=== PATIENT | male | born 1970 | race American Indian/Alaskan Native ===

== ENCOUNTER 2016-12-19 20:30 | Emergency (ER) | payer BC ==
[2016-12-19 20:47] VITALS: BMI 30.8
[2016-12-19 20:52] VITALS: BP 129/88; PULSE 89; RESP 17; TEMP 98.1; O2SAT 95
[2016-12-19] MEDS ORDERED: Sodium Chloride 0.9% 1,000 ML IV STA (21:32)
--- NOTE | 2016-12-19 21:36 | ED PDOC ---
Arrival/HPI - General Chief Complaint: High Blood Sugar Time Seen by Provider: 12/19/16 21:06 Historian: Patient - History of Present Illness Narrative History of Present Illness (Text): 12/19/16 21:33 Demetrio Montgomery is a 46 year old male, with a history of diabetes, presents to the emergency department for evaluation of 1 week duration of elevated blood glucose level. Patient states he was on Metformin in the past which he has not taken for over a year.He states he did not like the medication so he discontinued taking it. Patient has not had any recent follow up with PMD and only noticed elevation in blood glucose level a week ago which was in the 570s. Denies any fever, chills, headache, dizziness, blurred vision, nausea, vomiting , diarrhea, or any other complaints at this time. Time/Duration: 1 week Symptom Onset: Gradual Severity Level: Mild Activities at Onset: Light Past Medical History - Provider Review Nursing Documentation Reviewed: Yes - Infectious Disease Hx of Infectious Diseases: None - Cardiac Hx Cardiac Disorders: No - Pulmonary Hx Respiratory Disorders: Yes Hx Asthma: Yes - Neurological Hx Neurological Disorder: No - HEENT Hx HEENT Disorder: No - Renal Hx Renal Disorder: No - Endocrine/Metabolic Hx Endocrine Disorders: Yes Hx Diabetes Mellitus Type 2: Yes - Hematological/Oncological Hx Blood Disorders: No - Integumentary Hx Dermatological Disorder: No - Musculoskeletal/Rheumatological Hx Musculoskeletal Disorders: No - Gastrointestinal Hx Gastrointestinal Disorders: No - Genitourinary/Gynecological Hx Genitourinary Disorders: No - Psychiatric Hx Psychophysiologic Disorder: No Hx Depression: No Hx Emotional Abuse: No Hx Physical Abuse: No Hx Substance Use: No - Anesthesia Hx Anesthesia: No - Suicidal Assessment Feels Threatened In Home Enviroment: No Family/Social History - Physician Review Nursing Documentation Reviewed: Yes Family/Social History: No Known Family HX Smoking Status: Never Smoked Hx Alcohol Use: Yes Frequency of alcohol use: Socially Hx Substance Use: No Hx Substance Use Treatment: No Allergies/Home Meds Allergies/Adverse Reactions: Allergies No Known Allergies Allergy (Verified 12/19/16 20:50) Review of Systems - Physician Review All systems were reviewed & negative as marked: Yes - Review of Systems Constitutional: Normal. absent: Fatigue, Fevers Respiratory: Normal. absent: SOB, Cough, Sputum Cardiovascular: Normal. absent: Chest Pain, Palpitations Gastrointestinal: Normal. absent: Abdominal Pain, Diarrhea, Nausea, Vomiting Neurological: absent: Headache, Dizziness Physical Exam Vital Signs Reviewed: Yes Vital Signs Temp Pulse Resp BP Pulse Ox 12/19/16 20:52 98.1 F 89 17 129/88 95 Temperature: Afebrile Blood Pressure: Normal Pulse: Regular Respiratory Rate: Normal Appearance: Positive for: Well-Appearing, Non-Toxic, Comfortable Pain Distress: None Mental Status: Positive for: Alert and Oriented X 3 Finger Stick Blood Glucose: 425 - Systems Exam Head: Present: Atraumatic, Normocephalic Pupils: Present: PERRL Conjunctiva: Present: Normal Mouth: Present: Moist Mucous Membranes Respiratory/Chest: Present: Clear to Auscultation, Good Air Exchange. No: Respiratory Distress, Accessory Muscle Use Cardiovascular: Present: Regular Rate and Rhythm, Normal S1, S2. No: Murmurs Abdomen: Present: Normal Bowel Sounds. No: Tenderness, Distention, Peritoneal Signs Upper Extremity: Present: Normal Inspection. No: Cyanosis, Edema Lower Extremity: Present: Normal Inspection. No: Edema Neurological: Present: GCS=15, CN II-XII Intact, Speech Normal, Motor Func Grossly Intact, Normal Sensory Function Skin: Present: Warm, Dry, Normal Color. No: Rashes Psychiatric: Present: Alert, Oriented x 3, Normal Insight, Normal Concentration Medical Decision Making ED Course and Treatment: 12/19/16 21:38 Impression: A 46 year old male who presents to the emergency department for evaluation of elevated blood glucose level for past week. patient noncompliant with medication for over a year. Plan: -- Labs -- IV fluids -- Reassess and disposition Progress Notes: 12/20/16 01:10 Patient's blood glucose level decreasing following treatment. Advised to followup with PMD within few days and present to emergency department for new/ worsening symptoms. - Lab Interpretations Lab Results: 12/19/16 22:03 12/19/16 22:03 Lab Results 12/19/16 23:10: POC Glucose (mg/dL) 266 H 12/19/16 22:03: WBC 6.1, RBC 4.83, Hgb 15.3, Hct 42.7, MCV 88.4, MCH 31.7, MCHC 35.8, RDW 12.2, Plt Count 191, MPV 10.5 12/19/16 22:03: Sodium 136, Potassium 4.1, Chloride 100, Carbon Dioxide 24, Anion Gap 16, BUN 14, Creatinine 0.9, Est GFR ( Amer) > 60, Est GFR (Non- Af Amer) > 60, Random Glucose 351 H*, Calcium 9.3, Total Bilirubin 0.7, AST 34, ALT 54, Alkaline Phosphatase 88, Total Protein 8.0, Albumin 4.4, Globulin 3.6, Albumin/Globulin Ratio 1.2 12/19/16 20:47: POC Glucose (mg/dL) 425 H* I have reviewed the lab results: Yes - Medication Orders Current Medication Orders: Discontinued Medications Sodium Chloride (Sodium Chloride 0.9%) 1,000 mls @ 999 mls/hr IV .Q1H1M STA Stop: 12/19/16 22:32 Last Admin: 12/19/16 22:07 Dose: 999 mls/hr - Scribe Statement The provider has reviewed the documentation as recorded by the Alice Bernard Provider Attestation: All medical record entries made by the Alice were at my direction and personally dictated by me. I have reviewed the chart and agree that the record accurately reflects my personal performance of the history, physical exam, medical decision making, and the department course for this patient. I have also personally directed, reviewed, and agree with the discharge instructions and disposition. Disposition/Present on Arrival - Present on Arrival Any Indicators Present on Arrival: No History of DVT/PE: No History of Uncontrolled Diabetes: No Urinary Catheter: No History of Decub. Ulcer: No History Surgical Site Infection Following: None - Disposition Have Diagnosis and Disposition been Completed?: Yes Diagnosis: Diabetes mellitus Disposition: HOME/ ROUTINE Disposition Time: 00:44 Patient Plan: Discharge Condition: GOOD Discharge Instructions (ExitCare): Diabetes Mellitus Type 2 in Adults (ED) Additional Instructions: Maintain diabetic diet/take meds as prescribed/*Must follow up with your doctor this week* Prescriptions: GlipiZIDE [Glucotrol] 5 mg PO DAILY #30 tab Referrals: PCP,NO [Primary Care Provider] - Follow up with primary Forms: [employer] (Yoruba)
[2016-12-19 22:12] LABS: HEMATOCRIT 42.7 % (42.0-52.0); MEAN CELL VOLUME 88.4 fl (80.0-105.0); MEAN CORPUSCULAR HEMOGLOBIN 31.7 pg (25.0-35.0); MEAN CORPUSCULAR HGB CONC 35.8 g/dl (31.0-37.0); MEAN PLATELET VOLUME 10.5 fl (7.0-11.0); RED CELL DISTRIBUTION WIDTH 12.2 % (11.5-14.5); WHITE BLOOD COUNT 6.1 10^3/ul (4.5-11.0)
[2016-12-19 22:23] LABS: ALB/GLOB RATIO 1.2 (1.1-1.8); ALKALINE PHOSPHATASE 88 U/L (38-126); ALT/SGPT 54 U/L (7-56); AST/SGOT 34 U/L (17-59); BILIRUBIN,TOTAL 0.7 mg/dL (0.2-1.3); BLOOD UREA NITROGEN 14 mg/dL (7-21); CALCIUM 9.3 mg/dL (8.4-10.5); CARBON DIOXIDE 24 mmol/L (21-33); CHLORIDE 100 mmol/L (98-107); GFR AFRICAN-AMERICAN > 60; POTASSIUM 4.1 mmol/L (3.6-5.0); SODIUM 136 mmol/L (132-148)
[2016-12-19 22:27] LABS: GLUCOSE,RANDOM 351 mg/dL (70-110)
== END 2016-12-20 01:10 | disposition home or self-care (01) ==
LOC: ED 20:30
DX: E11.65 Type 2 diabetes mellitus with hyperglycemia (principal)
CPT/HCPCS: 80053; 82948; 85027; 99283; J7040

== ENCOUNTER 2018-05-02 12:14 | Emergency (ER) | payer BC ==
[2018-05-02 12:24] VITALS: BMI 28.7
[2018-05-02] MEDS ORDERED: Sodium Chloride 0.9% 1,000 ML IV STA ×2 (12:51→14:10)
--- NOTE | 2018-05-02 12:53 | ED PDOC ---
Arrival/HPI - General Chief Complaint: High Blood Sugar Historian: Patient - History of Present Illness Narrative History of Present Illness (Text): 05/02/18 12:39 48 y/o male, pmh including hld/dm, nkda, c/o fatigue/thirsty and leg cramps x 4 weeks. 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 Man last week for blood draw and doesn't know the results, been having fatigue and thirsty with bilateral thigh cramps, no fall or trauma, no chest pain or shortness of breath, no abdominal pain, no nausea/vomiting/diarrhea, no other medical or psychological complaints. Past Medical History - Provider Review Nursing Documentation Reviewed: Yes - Infectious Disease Hx of Infectious Diseases: None - Cardiac Hx Cardiac Disorders: No - Pulmonary Hx Respiratory Disorders: Yes Hx Asthma: Yes - Neurological Hx Neurological Disorder: No - HEENT Hx HEENT Disorder: No - Renal Hx Renal Disorder: No - Endocrine/Metabolic Hx Endocrine Disorders: Yes Hx Diabetes Mellitus Type 2: Yes - Hematological/Oncological Hx Blood Disorders: No - Integumentary Hx Dermatological Disorder: No - Musculoskeletal/Rheumatological Hx Musculoskeletal Disorders: No - Gastrointestinal Hx Gastrointestinal Disorders: No - Genitourinary/Gynecological Hx Genitourinary Disorders: No - Psychiatric Hx Psychophysiologic Disorder: No Hx Depression: No Hx Emotional Abuse: No Hx Physical Abuse: No Hx Substance Use: No - Anesthesia Hx Anesthesia: No - Suicidal Assessment Feels Threatened In Home Enviroment: No Family/Social History - Physician Review Nursing Documentation Reviewed: Yes Family/Social History: Unknown Family HX Smoking Status: Never Smoked Hx Alcohol Use: Yes Hx Substance Use: No Hx Substance Use Treatment: No Allergies/Home Meds Allergies/Adverse Reactions: Allergies No Known Allergies Allergy (Verified 05/02/18 12:41) Home Medications: Home Meds Medication Instructions Recorded Confirmed GlipiZIDE [Glucotrol] 10 mg PO DAILY 05/02/18 05/02/18 Pioglitazone HCl 30 mg PO DAILY 05/02/18 05/02/18 Review of Systems - Review of Systems Constitutional: Fatigue, Other (+thirsty) Eyes: absent: Vision Changes ENT: absent: Hearing Changes Respiratory: absent: SOB, Cough Cardiovascular: absent: Chest Pain Gastrointestinal: absent: Diarrhea, Nausea, Vomiting Musculoskeletal: Myalgias. absent: Arthralgias, Back Pain, Neck Pain, Joint Swelling Skin: absent: Rash, Pruritis Neurological: absent: Headache, Dizziness Psychiatric: absent: Anxiety, Depression, Suicidal Ideation Physical Exam Vital Signs Reviewed: Yes Vital Signs Temp Pulse Resp BP Pulse Ox 05/02/18 12:24 97.9 F 72 18 117/80 98 Temperature: Afebrile Blood Pressure: Normal Pulse: Regular Respiratory Rate: Normal Appearance: Positive for: Well-Appearing Pain Distress: Mild Mental Status: Positive for: Alert and Oriented X 3 Finger Stick Blood Glucose: 356 - Systems Exam Head: Present: Atraumatic, Normocephalic Pupils: Present: PERRL Extroacular Muscles: Present: EOMI Conjunctiva: Present: Normal Ears: Present: NORMAL TM, Normal Canal. No: Erythema Mouth: Present: Moist Mucous Membranes Pharnyx: No: ERYTHEMA, EXUDATE, TONSILS ENLARGED Nose (External): Present: Atraumatic. No: Abrasion, Contusion, Laceration Nose (Internal): Present: Normal Inspection, No Active Bleeding. No: Rhinorrhea, Septal Hematoma, Epistaxis Neck: Present: Normal Range of Motion, Trachea Midline. No: Meningeal Signs, MIDLINE TENDERNESS, Lymphadenopathy Respiratory/Chest: Present: Clear to Auscultation, Good Air Exchange. No: Respiratory Distress, Accessory Muscle Use Cardiovascular: Present: Regular Rate and Rhythm, Normal S1, S2. No: Murmurs Abdomen: No: Tenderness, Distention, Peritoneal Signs, Rebound, Guarding Back: Present: Normal Inspection. No: CVA Tenderness, Midline Tenderness, Pain with Leg Raise, Decubitus Ulcer Upper Extremity: Present: Normal Inspection, Normal ROM, NORMAL PULSES, Neurovascularly Intact. No: Cyanosis, Edema Lower Extremity: Present: Normal Inspection, NORMAL PULSES, Normal ROM, Neurovascularly Intact, Capillary Refill < 2 s. No: Edema, Tenderness, Swelling, Deformity Neurological: Present: GCS=15, CN II-XII Intact, Speech Normal, Motor Func Grossly Intact, Gait Normal, Memory Normal Skin: Present: Warm, Dry, Normal Color. No: Rashes Psychiatric: Present: Alert, Oriented x 3, Normal Insight, Normal Concentration Medical Decision Making ED Course and Treatment: 05/02/18 12:55 -labs/blood gas r/o DKA -doppler lower extremity r/o dvt -IVF -Observe and reassess 05/02/18 15:11 -Bilateral lower extremities venuous dopplers: as per preliminary report, no acute DVT -Chest xray ER wet read no active disease -Labs show no acute findings except hyperglycemia 331 (IVF and insulin ordered) -Mag within normal limit -ABG: PH 7.42, CO2 40, HCO3 25.9 -CPK within normal limit -UA show no UTI -Pt. feels well, not fatigue, no pain, discussed labs and result, advised medication review with his pmd and hardwood floor sander to see if there is any better [id number] medication control for his dm -Pt. has DM medications and refills now from his own pmd. -GLucose 254, stable for discharge. -Discharge home with education on follow up with your own pmd and hardwood floor sander within 2 days, continue your dm medication, return to the ER for any new or worsening signs or symptoms. - RAD Interpretation Radiology Orders: Bilateral LE Venuous doppler: as per preliminary report, no acute DVT HISTORY: Leg pain and swelling. Evaluate for DVT PHYSICIAN(S): Antonio Montgomery MD. TECHNIQUE: Duplex sonography and color-flow Doppler with graded compression were used to evaluate the deep venous systems of both lower extremities. FINDINGS: The visualized deep venous systems of both lower extremities are sonographically normal and compressible. Normal wave forms and augmentation are seen. There is no sonographic evidence for deep venous thrombosis in the visualized segments of both lower extremities. IMPRESSION: No sonographic evidence for deep venous thrombosis in the visualized segments of both lower extremities. Chest xray: Date of service: 05/02/2018 HISTORY: medical clearance COMPARISON: No prior. TECHNIQUE: Chest PA and lateral FINDINGS: LUNGS: No active pulmonary disease. PLEURA: No significant pleural effusion identified. No pneumothorax apparent. CARDIOVASCULAR: No aortic atherosclerotic calcification present. Normal cardiac size. No pulmonary vascular congestion. OSSEOUS STRUCTURES: No significant abnormalities. VISUALIZED UPPER ABDOMEN: Normal. OTHER FINDINGS: None. IMPRESSION: No active disease. Sprinkler Inspector: Radiologist - PA / CREW LEAD / Resident Statement MD/DO has reviewed & agrees with the documentation as recorded. Disposition/Present on Arrival - Present on Arrival Any Indicators Present on Arrival: No History of DVT/PE: No History of Uncontrolled Diabetes: No Urinary Catheter: No History of Decub. Ulcer: No History Surgical Site Infection Following: None - Disposition Have Diagnosis and Disposition been Completed?: Yes Diagnosis: Hyperglycemia due to type 2 diabetes mellitus Disposition: HOME/ ROUTINE Disposition Time: 14:46 Patient Plan: Discharge Patient Problems: Current Active Problems Problem Status Onset Hyperglycemia due to type 2 diabetes mellitus Acute Condition: IMPROVED Additional Instructions: -Discharge home with education on follow up with your own pmd and hardwood floor sander within 2 days, continue your dm medication, return to the ER for any new or worsening signs or symptoms. Referrals: Lisandra Angel MD [Medical Doctor] - Follow up with primary [facility] [place] [facility] [place] - Follow up with primary Forms: [employer] (Polish), WORK NOTE
[2018-05-02 13:26] LABS: ARTERIAL BLOOD GAS HCO3 25.9 mmol/L (21-28); ARTERIAL BLOOD GAS O2 SAT 98.7 % (95-98); ARTERIAL BLOOD GAS PCO2 40 mm/Hg (35-45); ARTERIAL BLOOD GAS PH 7.42 (7.35-7.45); ARTERIAL BLOOD GAS TCO2 27.1 mmol.L (22-28)
[2018-05-02 13:46] LABS: BASO # 0.01 K/mm3 (0.0-2.0); BASO % 0.1 % (0.0-3.0); EOS # 0.1 (0.0-0.7); EOS % 0.8 % (1.5-5.0); GRAN # 4.44 (1.4-6.5); GRAN % 62.9 % (50.0-68.0); HEMOGLOBIN 15.5 g/dL (14.0-18.0); LYMPH # 1.8 (1.2-3.4); LYMPH % 26.1 % (22.0-35.0); MEAN CELL VOLUME 89.8 fl (80.0-105.0); MEAN CORPUSCULAR HEMOGLOBIN 30.9 pg (25.0-35.0); MEAN CORPUSCULAR HGB CONC 34.4 g/dl (31.0-37.0); MONO # 0.7 (0.1-0.6); MONO % 10.1 % (1.0-6.0); RBC 5.01 10^6/uL (3.5-6.1); WHITE BLOOD COUNT 7.1 10^3/uL (4.5-11.0)
[2018-05-02 13:52] LABS: URINE BILIRUBIN NEGATIVE (NEGATIVE); URINE BLOOD NEGATIVE (NEGATIVE); URINE GLUCOSE (UA) >=1000 mg/dL (NEGATIVE); URINE LEUKOCYTE ESTERASE NEGATIVE Leu/uL (NEGATIVE); URINE PROTEIN NEGATIVE mg/dL (<30 mg/dL); URINE UROBILINOGEN 0.2 E.U./dL (<1 E.U./dL)
[2018-05-02 14:03] LABS: URINE APPEARANCE CLEAR (CLEAR); URINE COLOR YELLOW (YELLOW)
[2018-05-02 14:07] LABS: ALB/GLOB RATIO 1.2 (1.1-1.8); ALBUMIN 4.1 g/dL (3.0-4.8); ALT/SGPT 32 U/L (7-56); AST/SGOT 25 U/L (17-59); BLOOD UREA NITROGEN 15 mg/dL (7-21); CALCIUM 9.5 mg/dL (8.4-10.5); GFR NON-AFRICAN AMERICAN > 60; LIPASE 113 U/L (23-300)
[2018-05-02] MEDS ORDERED: Insulin Regular 1 UNITS/0.01 ML ML SC STA (14:10)
--- NOTE | 2018-05-02 14:35 | RAD ---
Date of service: 05/02/2018 HISTORY: medical clearance COMPARISON: No prior. TECHNIQUE: Chest PA and lateral FINDINGS: LUNGS: No active pulmonary disease. PLEURA: No significant pleural effusion identified. No pneumothorax apparent. CARDIOVASCULAR: No aortic atherosclerotic calcification present. Normal cardiac size. No pulmonary vascular congestion. OSSEOUS STRUCTURES: No significant abnormalities. VISUALIZED UPPER ABDOMEN: Normal. OTHER FINDINGS: None. IMPRESSION: No active disease.
--- NOTE | 2018-05-02 16:07 | US ---
HISTORY: Leg pain and swelling. Evaluate for DVT PHYSICIAN(S): Antonio Montgomery MD. TECHNIQUE: Duplex sonography and color-flow Doppler with graded compression were used to evaluate the deep venous systems of both lower extremities. FINDINGS: The visualized deep venous systems of both lower extremities are sonographically normal and compressible. Normal wave forms and augmentation are seen. There is no sonographic evidence for deep venous thrombosis in the visualized segments of both lower extremities. IMPRESSION: No sonographic evidence for deep venous thrombosis in the visualized segments of both lower extremities.
[2018-05-02 18:26] VITALS: BP 132/66; PULSE 82; RESP 19; TEMP 97.6; O2SAT 100
== END 2018-05-02 16:22 | disposition home or self-care (01) ==
LOC: ED 12:14
DX: E11.65 Type 2 diabetes mellitus with hyperglycemia (principal)
CPT/HCPCS: 36600; 71046; 80053; 81003; 82550; 82803; 82948; 83690; 83735; 85025; 93970; 96360; 96361; 99284; J7030

== ENCOUNTER 2018-07-06 18:09 | Inpatient (IN) | payer BC ==
[2018-07-06 18:23] VITALS: BMI 27.9
[2018-07-06] MEDS ORDERED: Sodium Chloride 0.9% 1,000 ML IV STA ×2 (18:26→18:42)
[2018-07-06] MEDS ORDERED: Insulin Regular 1 UNITS/0.01 ML ML SC ONE (18:27)
[2018-07-06] MEDS ORDERED: Insulin Regular 1 UNITS/0.01 ML ML ONE (18:42)
[2018-07-06 18:45] LABS: BASO # 0.01 K/mm3 (0.0-2.0); BASO % 0.1 % (0.0-3.0); EOS % 0.5 % (1.5-5.0); HEMOGLOBIN 15.6 g/dL (14.0-18.0); LYMPH # 2.3 (1.2-3.4); LYMPH % 30.3 % (22.0-35.0); MEAN CELL VOLUME 89.9 fl (80.0-105.0); MEAN CORPUSCULAR HEMOGLOBIN 30.8 pg (25.0-35.0); MEAN CORPUSCULAR HGB CONC 34.2 g/dl (31.0-37.0); MEAN PLATELET VOLUME 11.5 fl (7.0-11.0); MONO # 0.7 (0.1-0.6); MONO % 8.8 % (1.0-6.0); RBC 5.07 10^6/uL (3.5-6.1); RED CELL DISTRIBUTION WIDTH 12.1 % (11.5-14.5); WHITE BLOOD COUNT 7.5 10^3/uL (4.5-11.0)
--- NOTE | 2018-07-06 18:53 | ED PDOC ---
Arrival/HPI - General Chief Complaint: High Blood Sugar Time Seen by Provider: 07/06/18 18:17 Historian: Patient - History of Present Illness Narrative History of Present Illness (Text): 07/06/18 18:47 48 year old M with a pmh of diabetes presents with cc of high blood sugar and chest pain x3 wks. Patient reports that his blood sugar has been more than 500 mg/dl. Patient endorses being prescribed Glipizides for his diabetes, but says that he does not take it regularly. Patient also complains of being thirsty and constant urinating. Patient denies any fevers, chills, headache, dizziness, shortness of breath, dyspnea on exertion, cough, abdominal pain, nausea, vomiting, diarrhea, back pain, neck pain, or any other complaint. Time/Duration: < month Symptom Onset: Gradual Symptom Course: Unchanged Activities at Onset: Light Context: Home Past Medical History - Provider Review Nursing Documentation Reviewed: Yes - Infectious Disease Hx of Infectious Diseases: None - Cardiac Hx Cardiac Disorders: Yes - Pulmonary Hx Respiratory Disorders: Yes Hx Asthma: Yes - Neurological Hx Neurological Disorder: No - HEENT Hx HEENT Disorder: No - Renal Hx Renal Disorder: No - Endocrine/Metabolic Hx Endocrine Disorders: Yes Hx Diabetes Mellitus Type 2: Yes - Hematological/Oncological Hx Blood Disorders: No - Integumentary Hx Dermatological Disorder: No - Musculoskeletal/Rheumatological Hx Musculoskeletal Disorders: No - Gastrointestinal Hx Gastrointestinal Disorders: No - Genitourinary/Gynecological Hx Genitourinary Disorders: No - Psychiatric Hx Psychophysiologic Disorder: No Hx Depression: No Hx Emotional Abuse: No Hx Physical Abuse: No Hx Substance Use: No - Anesthesia Hx Anesthesia: No - Suicidal Assessment Feels Threatened In Home Enviroment: No Family/Social History - Physician Review Nursing Documentation Reviewed: Yes Family/Social History: No Known Family HX Smoking Status: Never Smoked Hx Alcohol Use: Yes Hx Substance Use: No Hx Substance Use Treatment: No Allergies/Home Meds Allergies/Adverse Reactions: Allergies No Known Allergies Allergy (Verified 07/06/18 18:20) Home Medications: Home Meds Medication Instructions Recorded Confirmed GlipiZIDE [Glucotrol] 10 mg PO DAILY 05/02/18 07/06/18 Pioglitazone HCl 30 mg PO DAILY 05/02/18 07/06/18 Rosuvastatin Calcium [Crestor] 10 mg PO DAILY 07/06/18 07/06/18 Review of Systems - Physician Review All systems were reviewed & negative as marked: Yes - Review of Systems Constitutional: Normal Eyes: Normal ENT: Normal Respiratory: Normal Cardiovascular: Chest Pain Gastrointestinal: Normal Genitourinary Male: Other (constant urination) Musculoskeletal: Normal Skin: Normal Neurological: Normal Endocrine: Normal Hemo/Lymphatic: Normal Psychiatric: Normal Physical Exam Vital Signs Reviewed: Yes Vital Signs Temp Pulse Resp BP Pulse Ox 07/06/18 18:26 97.9 F 68 18 107/72 96 Temperature: Afebrile Blood Pressure: Normal Pulse: Regular Respiratory Rate: Normal Appearance: Positive for: Well-Appearing, Non-Toxic, Comfortable Pain Distress: None Mental Status: Positive for: Alert and Oriented X 3 Finger Stick Blood Glucose: 420 - Systems Exam Head: Present: Atraumatic, Normocephalic Pupils: Present: PERRL Extroacular Muscles: Present: EOMI Conjunctiva: Present: Normal Mouth: Present: Moist Mucous Membranes Neck: Present: Normal Range of Motion Respiratory/Chest: Present: Clear to Auscultation, Good Air Exchange. No: Respiratory Distress, Accessory Muscle Use Cardiovascular: Present: Regular Rate and Rhythm, Normal S1, S2. No: Murmurs Abdomen: No: Tenderness, Distention, Peritoneal Signs Back: Present: Normal Inspection Upper Extremity: Present: Normal Inspection. No: Cyanosis, Edema Lower Extremity: Present: Normal Inspection. No: Edema Neurological: Present: GCS=15, Speech Normal Skin: Present: Warm, Dry, Normal Color. No: Rashes Psychiatric: Present: Alert, Oriented x 3, Normal Insight, Normal Concentration Medical Decision Making ED Course and Treatment: 07/06/18 18:55 Impression: 48 year old M presents with cc of high blood sugar x3 wks. Differential Diagnosis included but are not limited to: --DKA --HHOS Plan: --CXR --Labs --EKG --Insulin Inj --Aspirin --Saline IV 0.9% --UA -- Reassess and disposition Prior Visits: Notes and results from previous visits were reviewed. Patient was last seen in the emergency department on Progress Notes: 07/06/18 20:00 Blood sugars noted to decrease to 370s after 1 L of fluids. Signout given to Dr. Lemus who will resume the patient's care. - Lab Interpretations Lab Results: 07/06/18 18:40 07/06/18 18:40 Lab Results 07/06/18 18:40: Sodium 134, Potassium 4.4, Chloride 99, Carbon Dioxide 25, Anion Gap 15, BUN 19, Creatinine 0.9, Est GFR ( Amer) > 60, Est GFR (Non-Af Amer) > 60, Random Glucose 484 H* D, Calcium 10.0, Total Bilirubin 0.5, AST 30, ALT 38, Alkaline Phosphatase 83, Troponin I < 0.01, Total Protein 7.3, Albumin 4.0, Globulin 3.2, Albumin/Globulin Ratio 1.3 07/06/18 18:40: WBC 7.5, RBC 5.07, Hgb 15.6, Hct 45.6, MCV 89.9, MCH 30.8, MCHC 34.2, RDW 12.1, Plt Count 184, MPV 11.5 H, Neut % (Auto) 60.3, Lymph % (Auto) 30.3, [place] % (Auto) 8.8 H, Eos % (Auto) 0.5 L, Baso % (Auto) 0.1, Lymph # (Auto) 2.3, [place] # (Auto) 0.7 H, Eos # (Auto) 0.0, Baso # (Auto) 0.01, Absolute Neuts (auto) 4.49 07/06/18 18:21: POC Glucose (mg/dL) 420 H* I have reviewed the lab results: Yes - Medication Orders Current Medication Orders: Aspirin (Aspirin Chewable) 324 mg PO STAT STA Stop: 07/06/18 18:43 Sodium Chloride (Sodium Chloride 0.9%) 1,000 mls @ 999 mls/hr IV .Q1H1M STA Stop: 07/06/18 19:26 Sodium Chloride (Sodium Chloride 0.9%) 1,000 mls @ 999 mls/hr IV .Q1H1M STA Stop: 07/06/18 19:42 Discontinued Medications Insulin Human Regular (Humulin R) 10 units SC ONCE ONE Stop: 07/06/18 18:28 - PA / BPM ANALYST / Resident Statement / has reviewed & agrees with the documentation as recorded. - Scribe Statement The provider has reviewed the documentation as recorded by the Alice Kam All medical record entries made by the Scribe were at my direction and personally dictated by me. I have reviewed the chart and agree that the record accurately reflects my personal performance of the history, physical exam, medical decision making, and the department course for this patient. I have also personally directed, reviewed, and agree with the discharge instructions and disposition. Disposition/Present on Arrival - Present on Arrival History of DVT/PE: No History of Uncontrolled Diabetes: No Urinary Catheter: No History of Decub. Ulcer: No History Surgical Site Infection Following: None - Disposition Referrals: PCP,NO [Primary Care Provider] - Follow up with primary Forms: [employer] (Romanian)
[2018-07-06 19:24] LABS: TROPONIN I < 0.01 ng/mL
[2018-07-06 19:28] LABS: ALB/GLOB RATIO 1.3 (1.1-1.8); ALT/SGPT 38 U/L (7-56); AST/SGOT 30 U/L (17-59); BLOOD UREA NITROGEN 19 mg/dL (7-21); GFR NON-AFRICAN AMERICAN > 60
[2018-07-06 20:15] LABS: VENOUS BLOOD GAS BASE EXCESS 1.6 mmol/L (0.0-2.0); VENOUS BLOOD GAS PO2 26 mm/Hg (30-55); VENOUS BLOOD PH 7.29 (7.32-7.43)
[2018-07-06 21:45] LABS: URINE APPEARANCE CLEAR (CLEAR); URINE COLOR STRAW (YELLOW)
[2018-07-06 21:46] LABS: PH,URINE 6.5 (4.7-8.0); URINE BILIRUBIN NEGATIVE (NEGATIVE); URINE BLOOD NEGATIVE (NEGATIVE); URINE GLUCOSE (UA) >1000 mg/dL (NEGATIVE); URINE LEUKOCYTE ESTERASE NEGATIVE Leu/uL (NEGATIVE); URINE PROTEIN NEGATIVE mg/dL (<30 mg/dL); URINE UROBILINOGEN 0.2 E.U./dL (<1 E.U./dL)
--- NOTE | 2018-07-06 22:31 | RAD ---
Date of service: 07/06/2018 HISTORY: sob COMPARISON: 05/02/2018 FINDINGS: LUNGS: The lungs are well inflated and clear. PLEURA: No pleural effusions or pneumothorax. CARDIOVASCULAR: The heart is normal in size. No aortic atherosclerotic calcifications present. OSSEOUS STRUCTURES: Within normal limits for the patient's age. VISUALIZED UPPER ABDOMEN: Normal. OTHER FINDINGS: None. IMPRESSION: No active pulmonary disease.
--- NOTE | 2018-07-06 22:34 | ED PDOC ---
Physical Exam Vital Signs Temp Pulse Resp BP Pulse Ox 07/06/18 19:00 98 F 78 18 125/71 97 07/06/18 18:26 97.9 F 68 18 107/72 96 Finger Stick Blood Glucose: 245 Medical Decision Making ED Course and Treatment: 07/06/18 20:00 Cased endorsed to me by Dr. Churchill. Patient with a past medical history of diabetes presents complaining of uncontrolled blood sugar and chest pain. Patient was treated with fluids initially. Currently awaiting results of lab and further evaluation/disposition. 07/06/18 23:[address] Walters who is aware and agrees with the plan. Accepts patient into her service to telemetry observation. - Lab Interpretations Lab Results: pO2 26 mm/Hg (30-55) L 07/06/18 19:44 VBG pH 7.29 (7.32-7.43) L 07/06/18 19:44 VBG pCO2 62.0 (40-60) H 07/06/18 19:44 VBG HCO3 29.8 mmol/l (21-28) H 07/06/18 19:44 VBG Total CO2 31.7 mmol.L (22-28) H 07/06/18 19:44 VBG O2 Sat (Calc) 49.8 % (40-65) 07/06/18 19:44 VBG Base Excess 1.6 mmol/L (0.0-2.0) 07/06/18 19:44 VBG Potassium 5.1 mmol/L (3.6-5.2) 07/06/18 19:44 Sodium 140.0 mmol/L (132-148) 07/06/18 19:44 Chloride 102.0 mmol/L (98-107) 07/06/18 19:44 Glucose 401 mg/dl (75-110) H* 07/06/18 19:44 Lactate 1.7 mmol/L (0.7-2.1) 07/06/18 19:44 FiO2 21.0 % 07/06/18 19:44 Crit Value Called To Carmen whaley 07/06/18 19:44 Crit Value Called By Ms 07/06/18 19:44 Blood Gas Notified Time 201407/06/18 19:44 Troponin I < 0.01 ng/mL 07/06/18 18:40 Total Bilirubin 0.5 mg/dL (0.2-1.3) 07/06/18 18:40 AST 30 U/L (17-59) 07/06/18 18:40 ALT 38 U/L (7-56) 07/06/18 18:40 Alkaline Phosphatase 83 U/L (38-126) 07/06/18 18:40 Total Protein 7.3 g/dL (5.8-8.3) 07/06/18 18:40 Albumin 4.0 g/dL (3.0-4.8) 07/06/18 18:40 Globulin 3.2 gm/dL 07/06/18 18:40 Albumin/Globulin Ratio 1.3 (1.1-1.8) 07/06/18 18:40 Urine Color Straw (YELLOW) 07/06/18 20:02 Urine Appearance Clear (CLEAR) 07/06/18 20:02 Urine pH 6.5 (4.7-8.0) 07/06/18 20:02 Ur Specific [place] 1.015 (1.005-1.035) 07/06/18 20:02 Urine Protein Negative mg/dL (<30 mg/dL) 07/06/18 20:02 Urine Glucose (UA) >1000 mg/dL (NEGATIVE) H 07/06/18 20:02 Urine Ketones Negative mg/dL (NEGATIVE) 07/06/18 20:02 Urine Blood Negative (NEGATIVE) 07/06/18 20:02 Urine Nitrate Negative (NEGATIVE) 07/06/18 20:02 Urine Bilirubin Negative (NEGATIVE) 07/06/18 20:02 Urine Urobilinogen 0.2 E.U./dL (<1 E.U./dL) 07/06/18 20:02 Ur Leukocyte Esterase Negative Augustine/uL (NEGATIVE) 07/06/18 20:02 - RAD Interpretation Radiology Orders: 07/06/18 18:46 CHEST PORTABLE [RAD] Stat - Medication Orders Current Medication Orders: Discontinued Medications Aspirin (Aspirin Chewable) 324 mg PO STAT STA Stop: 07/06/18 18:43 Last Admin: 07/06/18 19:16 Dose: 324 mg Sodium Chloride (Sodium Chloride 0.9%) 1,000 mls @ 999 mls/hr IV .Q1H1M STA Stop: 07/06/18 19:26 Last Admin: 07/06/18 18:45 Dose: 999 mls/hr eMAR Start Stop Document 07/06/18 18:45 GMI (Rec: 07/06/18 18:45 GMI [id number]) Intravenous Solution Start Date 07/06/18 Start Time 18:45 End Date 07/06/18 End time 20:00 Total Infusion Time 75 Sodium Chloride (Sodium Chloride 0.9%) 1,000 mls @ 999 mls/hr IV .Q1H1M STA Stop: 07/06/18 19:42 Last Admin: 07/06/18 19:46 Dose: 999 mls/hr eMAR Start Stop Document 07/06/18 19:46 AD (Rec: 07/06/18 19:46 AD [id number]) Intravenous Solution Start Date 07/06/18 Start Time 19:46 Insulin Human Regular (Humulin R) 10 units SC ONCE ONE Stop: 07/06/18 18:28 Last Admin: 07/06/18 18:44 Dose: 10 units MAR Blood Glucose Document 07/06/18 18:44 GMI (Rec: 07/06/18 18:44 GMI [id number]) Blood Glucose Finger Stick Blood Glucose (70-120) 420 Subcutaneous Administrations Document 07/06/18 18:44 GMI (Rec: 07/06/18 18:44 GMI [id number]) Injection Site MAR Injection Site Right Arm Charges for Administration # of Subcutaneous Administrations 1 - Scribe Statement The provider has reviewed the documentation as recorded by the Scribe Emanuel Koch All medical record entries made by the Scribe were at my direction and personally dictated by me. I have reviewed the chart and agree that the record accurately reflects my personal performance of the history, physical exam, medical decision making, and the department course for this patient. I have also personally directed, reviewed, and agree with the discharge instructions and disposition. Disposition/Present on Arrival - Present on Arrival Any Indicators Present on Arrival: No History of DVT/PE: No History of Uncontrolled Diabetes: No Urinary Catheter: No History of Decub. Ulcer: No History Surgical Site Infection Following: None - Disposition Have Diagnosis and Disposition been Completed?: Yes Diagnosis: Chest pain, Uncontrolled diabetes mellitus Disposition: HOSPITALIZED Disposition Time: 23:05 Patient Plan: Observation Patient Problems: Current Active Problems Problem Status Onset Chest pain Acute Uncontrolled diabetes mellitus Acute Condition: STABLE Discharge Instructions (ExitCare): Chest Pain (ED) Referrals: PCP,NO [Primary Care Provider] - Follow up with primary Forms: [employer] ([place])
[2018-07-07 04:09] LABS: TROPONIN I < 0.01 ng/mL
[2018-07-07] MEDS: Insulin Reg-LOW-Coverage SC SCH ×4 (09:10→21:31)
--- NOTE | 2018-07-07 13:07 | CP.PCM.PCO ---
Assessment/Plan - Assessment/Plan Plan: House Doc resident for Dr Walters CC: Chest pain S: Mr Montgomery, 48 year old M with a pmh of uncontrolled diabetes and HLD c/o chest pain since last while he was driving. The pain was 8/10, pressure like, but he continues to drive. Since then, he had intermittent chest pain, comes on and off every day. 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 Per , pt is under emotional stress due to mom passing away and brother in coma. His brother had triple vessel disease s/p CABG in age 49 and he is suffering from CABG complication now in a coma. Mother had heart attacks and massive stroke rendering her paralyzed in her early 50s. Mom recently recently due to heart issue. In ED, VS stable. EKG normal. trops neg x 2. However, He was found to be in HHS with blood sugar >500 Today, at noon, pt c/o 6/10 pressure like chest pain, no radiation, no diaphoresis, no n/v/dizziness. after Subligual nitro given, chest pain totally resolved in 5-10 mins. Denies f/c, sob, n/v/d/c, dysuria. O: VS Stable NAD EOMI non-icteric regular s1 s2 no m/r/g CTA b/l no w/r/r air sampling and monitoring from 12n - 1pm: sinus, no rhythm changes, HR 70s-80s EKG repeat: NSR @ 67. No sig changes as compare to yesterday A: Chest pain r/o ACS Family history of premature cardiac event and strokes in early ages P: Continue tele monitor Will get the 3rd trops. EKG done. no change on tele. Dr Walters communicated
--- NOTE | 2018-07-07 17:07 | CARD ---
APPROVED REPORT Date of service: 07/06/2018 EKG Measurement Heart [id number] [id number] <Conclusion> Normal sinus rhythm Normal ECG
--- NOTE | 2018-07-07 17:23 | HP ---
DATE OF EXAM: 07/07/2018 HISTORY OF PRESENT ILLNESS: This 48-year-old male was examined at his bedside in the presence of his fiance, his cousin and nurse, Jordan Melton, registered nurse. The patient is a 48-year-old male who works for the [employer]. He presented to the [facility] ER late last evening complaining of accelerated hyperglycemia. The patient was noted to have a blood sugar greater than 500 mg per decaliter and he states he is noncompliant with outpatient oral medication. He also stated that he was having on and off chest discomfort over the last 3 weeks, which upon further questioning revealed that the patient was under undue stress and strain. His mother, who has suffered with hypertension, atherosclerotic heart disease and a stroke, recently 2 weeks ago and his brother, who had open heart surgery in [place], underwent bypass surgery which was complicated and he suffered cardiac arrest and is now in a coma. The patient, prior to my interview, experienced substernal chest discomfort and was given sublingual nitroglycerin with immediate results. On questioning the patient, he states he has a long 5-year history of noncompliance with type 2 diabetes mellitus, hyperlipidemia and denied any knowledge of hypertension. He states he is a nondrinker, nonsmoker, non IV drug misuser, has a strong family history of atherosclerotic heart disease and has no known allergies to medication. REVIEW OF SYSTEMS: CONSTITUTIONAL: No fever, no chills. HEAD: No headache or seizure. EYES: No change in visual acuity. EARS: No hearing loss. THROAT: No swallowing difficulty. NECK: No stiffness. CARDIAC: Intermittent chest discomfort, both exertional and nonexertional. PULMONARY: No cough. No hemoptysis. GI: No hematemesis. No melena. : No dysuria. SKIN: No rash. VASCULAR: No claudication. PSYCHOLOGICAL: No anxiety or depression. NEUROLOGICAL: No knowledge of stroke. PHYSICAL EXAMINATION: GENERAL: At the time of my interview, he was in normal sinus rhythm on manager cardiac. VITAL SIGNS: Temperature 97.9, respirations 20, pulse 75, blood pressure 107/67, pulse ox 96% on room air. HEAD: Normocephalic, atraumatic. EYES: No icterus. EARS: Clear. THROAT: Noninjected. NECK: Supple. HEART: S1, S2 clear. No pathological rubs, murmurs, gallops. LUNGS: Clear. ABDOMEN: Soft. EXTREMITIES: No edema. SKIN: Without rash. NEUROLOGICAL: Intact. PSYCHOLOGICAL: Alert. VASCULAR: Legs warm to touch. LABORATORY DATA: White count 7500, hemoglobin 15.6, hematocrit 45.6, platelets 184,000. Random blood sugar 287. Sodium 134, K 4.4, chloride 99, bicarb 25, BUN 19, creatinine 0.9. Admission blood sugar 484, calcium 10. Bilirubin 0.5, AST 30, ALT 38, alk phos 83. Troponin less than 0.01 x3. Urinalysis showed no protein, glucose greater than 1000 mg per decaliter. Chest x-ray was reviewed. It showed lungs well inflated and clear. No evidence of pleural effusion. No pneumothorax. Heart normal in size. No infiltrates. No evidence of congestive heart failure. EKG reportedly showed normal sinus rhythm. IMPRESSION: This is a 48-year-old male with longstanding uncontrolled type 2 diabetes mellitus, hyperlipidemia, strong family history of atherosclerotic heart disease, now with intermittent chest discomfort. PLAN: The plan, as discussed with the patient, family and nursing at bedside, will be to continue the patient on metformin 1000 mg p.o. b.i.d., Humulin R low-dose insulin coverage a.c. meals and h.s., Lipitor 10 mg p.o. at dinnertime, Tylenol 650 p.o. every 6 hours. p.r.n. pain or temperature greater than 101 and Zofran 4 mg IV every 6 hours p.r.n. nausea and vomiting. Given the patient's recent chest discomfort with strong family history, I will order Imdur 30 mg p.o. today and daily with nitroglycerin 1 tablet p.o. sublingual p.r.n. chest discomfort. He is ordered to have a 2D echocardiogram and a Lexiscan stress test as well as a hemoglobin A1c and fasting lipid panel in the a.m. Based on clinical progress, additional diagnostic workup and testing will be entertained. Greater than 75 minutes was spent in the care management, review of labs, orders, x-rays, outlining of treatment plan for this patient today and discussion of his case with himself and nursing at bedside. All questions were answered. Trinh Walters MD [facility] # [id number] MONICA
--- NOTE | 2018-07-07 19:42 | CARD ---
APPROVED REPORT Date of service: 07/07/2018 EKG Measurement Heart [id number] <Conclusion> Normal sinus rhythm Normal ECG
[2018-07-08 06:53] LABS: HDL CHOLESTEROL 37 mg/dL (29-60)
[2018-07-08 07:04] LABS: LDL CHOLESTEROL 159 mg/dL (0-129)
[2018-07-08] MEDS: Insulin Reg-LOW-Coverage SC SCH ×4 (08:21→21:33)
--- NOTE | 2018-07-08 16:49 | PN ---
DATE: 07/08/2018 SUBJECTIVE: This 48-year-old male was examined at his bedside in the presence of his fiance, Marychuy, on the morning of 07/08/2018. Present for this interview was nurse, Yeimi Rider, registered nurse. The patient is being readied for echocardiogram and Lexiscan stress test. He has had no further chest pain or palpitation and is tolerating Imdur and p.r.n. nitroglycerin order. He remains in sinus rhythm on the residential monitor. PHYSICAL EXAMINATION: VITAL SIGNS: Today his temperature is 97.7, respirations 20, pulse 64 and blood pressure 104/70 with a pulse ox of 97% room air. HEENT: Head normocephalic, atraumatic. Eyes: No icterus. Ears: Clear. Throat: Noninjected. NECK: Supple. HEART: S1 and S2. LUNGS: Clear. ABDOMEN: Soft. EXTREMITIES: No edema. SKIN: Without rash. NEUROLOGIC: Intact. PSYCHOLOGIC: Alert. VASCULAR: Legs warm to touch. LABORATORY DATA: White count 7500, hemoglobin 15.6, hematocrit 45.6, platelets 184,000. Random blood sugar 252. Troponin less than 0.01. Cholesterol 238, triglycerides 130, LDL 159 and HDL 37. IMPRESSION: This is a 48-year-old male with uncontrolled type 2 diabetes mellitus. Of note, hemoglobin A1c was 15.6, high. PLAN: The plan, as discussed with the patient and family at bedside, will be to continue metformin 1000 mg p.o. b.i.d. and start the patient on Levemir 20 units at bedtime. He also will continue on regular Humulin insulin a.c. meals and h.s., Imdur 30 mg p.o. daily, Lipitor 20 mg p.o. at dinner time, nitroglycerin sublingual p.r.n. chest pain, Tylenol 650 p.o. every 6 hours p.r.n. pain or temperature greater than 101 and Zofran 4 mg IV every 6 hours p.r.n. nausea and vomiting. I have asked nurse, Laura Rao to educate this patient regarding his diabetes and need for insulin management. He will complete his echo and thallium stress test. He will continue on heart-healthy diabetic diet; and based on clinical progress, additional diagnostic workup and testing will be entertained. Greater than 35 minutes was spent in the care and management of this patient. All questions were answered. Trinh Walters MD
--- NOTE | 2018-07-08 19:01 | CARD ---
APPROVED REPORT Date of service: 07/08/2018 EXAM: Two-dimensional and M-mode echocardiogram with Doppler and color Doppler. INDICATION Chest Pain 2D DIMENSIONS Left Atrium (2D)3.3 (1.6-4.0cm)IVSd1.0 (0.7-1.1cm) LVDd4.1 (3.9-5.9cm)PWd1.0 (0.7-1.1cm) LVDs2.7 (2.5-4.0cm)FS (%) 34.0 % LVEF (%)63.4 (>50%) M-Mode DIMENSIONS Aortic Root3.00 (2.2-3.7cm)Aortic Cusp Exc.1.90 (1.5-2.0cm) Aortic Valve AoV Peak Racxakjn754.0cm/Simran Peak GR.6mmHg Mitral Valve MV E Fzyvkmkc96.3cm/sMV A Trssmleg85.5cm/sE/A ratio0.6 TDI Lateral E' Peak V11.20cm/sMedial E' Peak V7.99cm/sE/Lateral E'5.6 E/Medial E'7.8 Pulmonary Valve PV Peak Tvdcocja56.0cm/sPV Peak Grad.2mmHg Tricuspid Valve TR Peak Sefrbzhc758oz/sRAP QTYZKQSS83ybLjJY Peak Gr.14mmHg ULUS18ipFh LEFT VENTRICLE The left ventricle is normal size. There is normal left ventricular wall thickness. The left ventricular function is normal. The left ventricular ejection fraction is within the normal range. There is mild hypokinesis of the inferoseptal wall. AORTIC VALVE The aortic valve is normal in structure. No aortic regurgitation is present. There is no aortic valvular stenosis. MITRAL VALVE The mitral valve is normal in structure. There is no mitral valve regurgitation noted. TRICUSPID VALVE The tricuspid valve is normal in structure. There is no tricuspid valve regurgitation noted. GREAT VESSELS The aortic root is normal in size. The IVC is normal in size and collapses >50% with inspiration. PERICARDIAL EFFUSION There is no pleural effusion. There is no pericardial effusion. <Conclusion> Normal chamber size. Normal LV systolic function despite mild inferoseptal hypokinesis. No valvular abnormalities noted.
[2018-07-08] MEDS: Insulin Detemir 100 units/ml Vial (Levemir) SC SCH (21:33)
--- NOTE | 2018-07-09 03:41 | CON ---
DATE: 07/08/2018 REQUESTING PHYSICIAN: Dr. Walters REASON FOR CONSULTATION: Chest pain. HISTORY: This is a 48-year-old man with a history of diabetes as well as a strong family history of premature heart disease, who presented with weakness and marked hyperglycemia. He also was having chest pain on and off for the past several days. He was admitted for evaluation. Initial cardiac enzymes and electrocardiogram were unremarkable. He denies any prior cardiac history. He describes his chest pain as at times pressure-like, other times sharp across his upper chest. He cannot identify any relieving or precipitating factors. PAST MEDICAL HISTORY: He has been a diabetic for the past several years. He is not hypertensive. He does have mild hyperlipidemia. SOCIAL HISTORY: He does not smoke. 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 He is and lives with his . ALLERGIES: NONE. MEDICATIONS AT HOME: Included Crestor, Actos, and Glucotrol. FAMILY HISTORY: There is a strong family history of premature heart disease. Mother recently from complications of heart disease and stroke. One brother underwent recent open heart surgery and has had complications postoperatively and is doing poorly, he is in his late 40s. REVIEW OF SYSTEMS: A 10-point review of systems is otherwise unremarkable. PHYSICAL EXAMINATION: GENERAL: He is a fit-appearing middle-aged man. VITAL SIGNS: His blood pressure is 104/70 with a pulse of 64 and sinus, respirations are 16. He is afebrile. HEENT: Normocephalic, atraumatic. NECK: Supple. No JVD noted. CHEST: Clear to auscultation and percussion. HEART: PMI in normal position. No pathological murmurs or gallops are noted. ABDOMEN: Soft, nontender, normoactive bowel sounds. EXTREMITIES: No clubbing, cyanosis, or edema. SKIN: Warm and dry. PSYCHIATRIC: Normal mood and affect. NEUROLOGIC: Alert and oriented x3. No gross motor or sensory deficits notable. DIAGNOSTIC DATA: White count 7.5, hemoglobin and hematocrit of 15.6 and 45.6, with a platelet count of 184,000. Potassium 4.4, BUN and creatinine of 19 and 0.9. Initial glucose was 484. Hemoglobin A1c is 15.6%. Three sets of cardiac enzymes are negative. Cholesterol is 238 with an HDL of 37, LDL of 159, triglycerides of 130. Electrocardiogram reveals sinus rhythm with no significant abnormalities. Chest x-ray reveals a normal cardiac silhouette with clear lung duque. IMPRESSION: 1. Chest pain, some aspects of which sound significant for coronary artery disease; however, some aspects appear somewhat atypical. 2. Multiple cardiac risk factors given his strong family history of heart disease as well as diabetes and hyperlipidemia. 3. Diabetes, poorly controlled. 4. Hyperlipidemia. Would benefit from high-dose statin therapy. RECOMMENDATIONS: Dietary education with respect to diabetes and hyperlipidemia should be provided. A stress test is planned for the morning. If this is abnormal, further cardiac evaluation would be appropriate. The need for aggressive risk factor control given his strong family history and his young age was discussed with him in detail. Thank you for this consultation. I will be happy to follow along as needed. Taqueria Stephen MD
[2018-07-09] MEDS: Insulin Reg-LOW-Coverage SC SCH ×4 (08:00→21:24)
--- NOTE | 2018-07-09 08:55 | PN ---
DATE: 07/09/2018 SUBJECTIVE: The patient is seen lying in bed on telemetry. He is comfortable at the present time. He has had no recurrent chest pain. He is scheduled for a stress test later this morning. OBJECTIVE PHYSICAL EXAMINATION GENERAL: He is a middle-aged man who appears comfortable at the present time. VITAL SIGNS: His blood pressure is 106/56 with a pulse of 60 and sinus, respirations are 14. He is afebrile. HEENT: No JVD. HEART: PMI in normal position. No pathological gallops noted. LUNGS: Clear to auscultation and percussion. ABDOMEN: Soft, nontender with normoactive bowel sounds. EXTREMITIES: No edema. LABORATORY DATA: White count 7.5, hemoglobin and hematocrit 15.6 and 45.6 with a platelet count of 184,000. A recent cholesterol is 238 with LDL 159, HDL 37. Hemoglobin A1c was 15.6%. Echocardiogram revealed normal LV size with normal LV systolic function, possible mild anteroseptal hypokinesis was seen. No valvular modalities noted. MEDICATIONS: His current medications include Glucophage 1000 mg b.i.d., Imdur 30 mg daily, Levemir insulin, Lipitor 20 mg daily. IMPRESSION 1. Chest pain, possible anginal in nature, awaiting stress test this morning. 2. Multiple cardiac risk factors given his family history of premature heart disease as well as diabetes and hyperlipidemia. 3. Poorly controlled diabetes. RECOMMENDATIONS: Nuclear stress test is planned for this morning. Further recommendations will be made based upon those results. The need for intensification of his diabetic control as well as maintenance of the ideal lipid panel was discussed with him. The potential for severe cardiovascular complications as well as renal failure and diabetic retinopathy were discussed at length with him. Further recommendations would be made following his stress test this morning. I will follow along as needed. Taqueria Stephen MD
--- NOTE | 2018-07-09 14:08 | PN ---
DATE: 07/09/2018 SUBJECTIVE: This 48-year-old patient remains hospitalized, awaiting echocardiography and Lexiscan stress test. He was admitted with accelerated hyperglycemia and anginal chest pain. At present, he remains in sinus rhythm on the cardiac tech. PHYSICAL EXAMINATION: VITAL SIGNS: Temperature 97.8, respirations 20, pulse 61, and blood pressure 107/63. Pulse ox 99% room air. HEAD: Normocephalic, atraumatic. EYES: No icterus. EARS: Clear. THROAT: Noninjected. NECK: Supple. HEART: S1, S2. LUNGS: Clear. ABDOMEN: Soft. EXTREMITIES: No edema. SKIN: Without rash. NEUROLOGIC: Intact. PSYCHOLOGIC: Alert. VASCULAR: Legs warm to touch. LABORATORY DATA: White count 7500, hemoglobin 15.6, hematocrit 45.6, platelets 184,000. Sodium 134, K 4.4, chloride 99, bicarb 25, BUN 19, creatinine 0.9, calcium 10. Bilirubin 0.5, AST 30, ALT 38 and alk phos 83. Troponin less than 0.01 x3. Hemoglobin A1c 15.6. The patient's blood sugars since initiating Levemir are now running 114 mg/dL this morning. IMPRESSION: This is a 48-year-old male admitted with accelerated hyperglycemia, elevated hemoglobin A1c secondary to noncompliance with diet and medication as outpatient. Also with anginal chest pain and history of family members with premature atherosclerotic heart disease and complications also with hyperlipidemia. PLAN: Plan at present is to continue Glucophage 1000 mg p.o. b.i.d., Imdur 30 mg p.o. daily, Levemir 20 units subcu at bedtime, Lipitor 20 mg p.o. at dinnertime, nitroglycerin 0.4 mg sublingual p.r.n. chest pain, regular R Humulin insulin coverage before a meal and at bedtime. The patient will complete 2-D echocardiogram, Lexiscan stress test and based on results, additional diagnostic workup and testing will be entertained. He continues on a heart-healthy diabetic diet. All of the above was reviewed with his nurse, Yeimi Crump RN. All questions were answered Trinh Walters MD
--- NOTE | 2018-07-09 21:31 | CARD ---
APPROVED REPORT Date of service: 07/09/2018 Protocol: CORINNA Test Type: Sestamibi Stress Test Attending Physician: Dr. Taqueria Stephen Referring Physician: Dr. Trinh Walters Test Indications: r/o ashd Height:5 ft 5 in Weight:173lbs Medications: imdur, insulin, glucaphage Medical History: 48 year old male with h/o high cholesterol, asthma and diabetes Target HR: 173 bpm Resting ECG: abnormal Resting Heart Rate: 65 bpm Resting Blood Pressure: 112/64mmHg Submaximum (85%): 147 bpm POST EXERCISE Reason for Termination: Fatigue Target HR: No Max HR: 162 bpm 93% of Maximum Predicted HR: 173 bpm Exercise duration: 13:30 min:sec, 5 Stage Exercise capacity: 16.1METs Max Blood Pressure: 148/88mmHg Blood Pressure response to exercise: normal resting BP - appropriate response Heart Rate response to exercise: appropriate Chest Pain: No, none Angina index: 0 Arrhythmia: No, none ST Change: No, none Deviation: 0 mm TEST SUMMARY [id number]/.0. [id number]/64.0. EXERCISESTAGE 103:[id number]/80.0. EXERCISESTAGE 203:[id number]/82.0. EXERCISESTAGE 303:[id number]/88.0. EXERCISESTAGE 403:[id number]/88.0. EXERCISESTAGE 501:[id number]/88.0. [id number]:100.00.07.3123/.0. INTERPRETATION Stress EKG Conclusion: Normal exercise phase of NST. Signed by Taqueria Stephen Electronically Approved: 07/09/2018 09:18:48 EXAM: Myocardial Perfusion REST/STRESS Stress Test Type: Exercise Treadmill Imaging Protocol The imaging protocol used to acquire images was Rest Tc-99m/stress Tc-99m 1 day Rest Spect myocardial perfusion imaging was performed in supine position 50 minutes following the injection of 10.3 mCi of Tc-99 Myoview. At peak stress, the patient was injected intravenously with 30.2mCi of Tc-99 tetrofosmin after an exercise time of 13 minutes and 30 seconds. Gated Stress Spect was performed 65 minutes after intravenous Tc-99 Myoview injection. The images were gated to evaluate regional wall motion and calculate ventricular ejection fraction.Images were reconstructed using backfilter projection method in short horizontal and verticle long axis. Spect slices were generated. LV Perfusion The quality of the study is good. The left ventricle is normal in size. The right ventricle is unremarkable. The lung uptake is within normal limits. The distribution of tracer reveals mildly decreased perfusion in the apical wall and moderately decreased perfusion in the basal inferolateral wall on the stress studyy. The remainder of the LV myocardium is unremarkable. The rest myocardial perfusion study shows improvement of the defects. Wall Motion Wall motion study shows good contractility of the left ventricle. LVEF =65%. Conclusion 1. Abnormal SPECT myocardial perfusion study. 2. Reversible, small-size, apical and basal inferolateral defects are suggestive of ischemia. 3. Normal gated wall motion of the left ventricle.
[2018-07-09] MEDS: Insulin Detemir 100 units/ml Vial (Levemir) SC SCH (22:04)
[2018-07-10] MEDS: Insulin Reg-LOW-Coverage SC SCH ×4 (07:30→21:48)
[2018-07-10] MEDS ORDERED: Insulin Detemir 100 units/ml Vial (Levemir) SC SCH (09:02)
--- NOTE | 2018-07-10 12:14 | PN ---
DATE: 07/10/2018 SUBJECTIVE: The patient is seen lying in bed on 3R. He is comfortable at present time. He has had no recurrent chest pain. He underwent a stress test yesterday. At that time, he had no chest pain or EKG changes; however, his nuclear images show evidence of a reversible apical and basal inferolateral defect suggestive of ischemia. His ejection fraction was normal at 65%. CURRENT MEDICATIONS: Include metformin 1000 mg b.i.d., insulin coverage, Imdur 30 mg daily, Levemir insulin 20 units at bedtime, Lipitor 20 mg. OBJECTIVE: GENERAL: He is a middle-aged man who appears comfortable at rest. VITAL SIGNS: Blood pressure is 112/64, pulse 56 and sinus, respirations 14. He is afebrile. HEENT: No JVD. CHEST: Clear to auscultation and percussion. HEART: PMI in normal position. No pathological gallops noted. ABDOMEN: Soft, nontender with bowel sounds. EXTREMITIES: No edema. DIAGNOSTIC DATA: Glucose is 118. IMPRESSION: 1. Recent chest pain with nuclear stress test suggestive of significant coronary disease. 2. Significant risk factors given his strong family history of premature heart disease as well as his diabetes and hyperlipidemia. 3. Poorly controlled diabetes. RECOMMENDATIONS: Given his young age and abnormal stress test, cardiac catheterization is advised at this time. The risks and benefits were reviewed with him and he is agreeable to proceed. This is being scheduled for early tomorrow morning. The alternatives of empiric medical therapy were discussed as well. The need for aggressive risk factor control, especially much better control of his diabetes was reviewed with him as well. I will follow and make further things as appropriate. Taqueria Stephen MD
--- NOTE | 2018-07-10 13:47 | PN ---
DATE: 07/10/2018 SUBJECTIVE: This 48-year-old male was examined at his bedside on the cardiac ventura of the [facility] on the morning of 07/10/2018. This case was reviewed with nurse, Trinh Fairbanks, registered nurse and Dr. Taqueria Stephen, Cardiology. The patient's echocardiogram was reviewed. It shows normal chamber size, normal left ventricular systolic function despite mild inferior septal hypokinesia with no valvular abnormalities noted. His myocardial Lexiscan stress test was reviewed and discussed with the patient. It shows an abnormal SPECT myocardial perfusion study with reversible small size apical and basal inferior lateral defects suggestive of ischemia. Normal gated wall motion was noted of his left ventricle. Given these findings, it has been advised that the patient undergo cardiac catheterization in the a.m. The patient's Glucophage will be discontinued, IV fluid hydration per protocol will be started and all of this was reviewed in detail in the presence of nurse, Tiki. He is in a normal sinus rhythm on project mgr. PHYSICAL EXAMINATION: VITAL SIGNS: Temperature 98, respirations 18, pulse 62 and blood pressure 112/64. Pulse ox 96% on room air. HEAD: Normocephalic, atraumatic. EYES: No icterus. EARS: Clear. THROAT: Noninjected. NECK: Supple. HEART: S1, S2. LUNGS: Clear. ABDOMEN: Soft. EXTREMITIES: No edema. SKIN: Without rash. NEUROLOGIC: Intact. PSYCHOLOGIC: Alert. VASCULAR: Legs warm to touch. LABORATORY DATA: Blood sugars ranged between 72 and 100 and 92 for the past 12 hours. White count 7,500, hemoglobin 15.6, hematocrit 45.6, platelets 184,000. Sodium 134, K 4.4, chloride 99, bicarb 25, BUN 19, creatinine 0.9, calcium 10. Bilirubin 0.5, AST 30, ALT 38 and alk phos 83. Troponin was less than 0.01 x3. Urinalysis showed no protein. IMPRESSION: This is a 48-year-old male with unstable angina and comorbidities of poorly controlled type 2 diabetes mellitus, hyperlipidemia. PLAN: To continue Ecotrin 81 mg p.o. daily. Glucophage will be discontinued. Continue on Humulin R insulin coverage a.c. meals and at bedtime, Imdur 30 mg p.o. daily and Levemir has been decreased to 10 units subcu at bedtime in anticipation of his cardiac cath in the a.m. He continues on Lipitor 20 mg p.o. daily, nitroglycerin sublingual p.r.n. chest pain, Tylenol 650 p.o. every six hours p.r.n. pain, headache or fever and Zofran 4 mg IV every six hours p.r.n. nausea and vomiting. The patient will be started on 0.9 saline at 100 mL/hour at 10 p.m. tonight. He is ordered to have 1 amp of bicarb material control supervisor to cardiac cath; Lasix 20 mg IV x1 dose material control supervisor to cardiac cath and upon his return, will receive K-Dur 20 mEq p.o. x1 dose and mannitol 6.25 g IV piggyback over 30 minutes post cardiac cath. He will have a basic metabolic panel drawn in the a.m. for the next 48 hours, continuing on heart-healthy diabetic diet and I have instructed the nursing staff to continue to train the patient on the use of insulin. Greater than 35 minutes was spent in the care management, review of labs, outlining of orders and discussion of this patient with himself, nursing and Dr. Stephen. All questions were answered Trinh Walters MD
[2018-07-10] MEDS: Sodium Chloride 0.9% 1,000 ML IV SCH (22:10)
[2018-07-11 07:14] LABS: INR 1.17; PARTIAL THROMBOPLASTIN TIME 27.6 Seconds (26.9-38.3); PROTHROMBIN TIME 13.2 SECONDS (9.4-12.5)
[2018-07-11 07:17] LABS: BLOOD UREA NITROGEN 12 mg/dL (7-21); CALCIUM 8.7 mg/dL (8.4-10.5); GFR NON-AFRICAN AMERICAN > 60
[2018-07-11] MEDS: Insulin Reg-LOW-Coverage SC SCH ×2 (07:28→16:40)
[2018-07-11] MEDS ORDERED: Iodixanol 320 MG/ML 100 ML BOTTLE IV ONE (09:21)
[2018-07-11] MEDS ORDERED: Lidocaine PF 2% (5 ml) Inj (For Cardiac Arrhy) ONE (09:21)
[2018-07-11] MEDS ORDERED: Iodixanol 320 MG/ML 200 ML BOTTLE IV ONE (09:21)
[2018-07-11] MEDS ORDERED: Iohexol 350mgl/ml 50 ML ONE (09:21)
[2018-07-11] MEDS ORDERED: Midazolam 2 MG/2 ML VIAL ONE (09:55)
[2018-07-11] MEDS ORDERED: Insulin Detemir 100 units/ml Vial (Levemir) SC SCH (10:17)
[2018-07-11] MEDS: Sodium Chloride 0.9% 1,000 ML IV SCH (10:30)
--- NOTE | 2018-07-11 12:15 | PN ---
DATE: 07/11/2018 SUBJECTIVE: The patient is seen lying in bed, on telemetry. He is comfortable at the present time. He denies any recurrent chest pain. He is scheduled for cardiac catheterization this morning to evaluate his recent symptoms and abnormal stress test. CURRENT MEDICATIONS: Include aspirin, insulin, Lipitor 20 mg daily, Zofran p.r.n. OBJECTIVE: GENERAL: He is a middle-aged man who appears comfortable at rest. VITAL SIGNS: His blood pressure is 120/70, pulse 60 and sinus, respirations 16. He is afebrile. HEENT: No JVD. CHEST: Clear to auscultation and percussion. HEART: No pathological gallops noted. ABDOMEN: Soft, nontender with bowel sounds. EXTREMITIES: No edema. DIAGNOSTIC DATA: Potassium 3.7, BUN and creatinine 12 and 1. IMPRESSION: 1. Recent chest pain and abnormal stress test, suspicious for cardiac ischemia. 2. Significant high risk factors with strong family history of premature heart disease as well as history of diabetes and hyperlipidemia. 3. Poorly controlled diabetes. RECOMMENDATIONS: Cardiac catheterization will be performed this morning. Risk and benefits have been discussed with the patient in detail and he is agreeable to proceed. Further recommendations will be made based upon his catheterization result. Obviously, aggressive risk factor control is very important moving forward. We will follow along as needed. Taqueria Stephen MD
--- NOTE | 2018-07-11 13:02 | CARDCATH ---
PROCEDURE DATE: 07/10/2018 CARDIAC CATHETERIZATION REPORT PROCEDURES: 1. Left and right coronary angiography. 2. Left ventriculography. 3. Right femoral arteriography. 4. Angio-Seal deployment. HISTORY: This is a 48-year-old man with a recent chest pain and abnormal stress test as well as strong family history of coronary artery disease that was advised cardiac catheterization. INDICATIONS: Chest pain, abnormal stress test, multiple cardiac risk factors. FINDINGS: HEMODYNAMICS: The aortic pressure was 110/70, left ventricular pressure of 110/40. CORONARY ANATOMY: 1. The left main stem was normal. 2. Left anterior descending artery and its branches had minimal irregularities. The vessels were large and wrapped around the apex. 3. The left circumflex artery and its branches were normal as well. 4. The right coronary artery was large, dominant and normal. LEFT VENTRICULOGRAPHY: A hand injection was performed of the left ventricle revealing normal wall motion with an ejection fraction of 55%. There was no aortic valve gradient noted on catheter pullback. RIGHT FEMORAL ARTERIOGRAPHY: Right femoral arteriogram revealed no significant disease and appropriate level of arterial puncture. The puncture site was then closed with deployment of an Angio-Seal device. CONCLUSION: 1. No significant obstructive coronary artery disease. 2. Normal left ventricular systolic function. RECOMMENDATION: Given the above findings, aggressive risk factor control should continue. The need for tight control of diabetes and hyperlipidemia was discussed with the patient. Taqueria Stephen MD cc: Trinh Walters MD
[2018-07-11 13:38] VITALS: RESP 18
--- NOTE | 2018-07-11 15:19 | PN ---
DATE: 07/11/2018 SUBJECTIVE: This 48-year-old male remains hospitalized on the cardiac ventura of the [facility] on the morning of June. He is being readied for cardiac cath for an abnormal Lexiscan stress test in the setting of clinical signs and symptoms of unstable angina. This case was reviewed in detail with his nurse, Trinh Fairbanks, registered nurse. The patient is receiving IV fluid hydration protocol because of his insulin dependent diabetes mellitus. At present he is receiving 0.9 saline at 100 mL/hour and extrusion manager to the cardiac cath will receive 1 ampule of IV bicarb, IV Lasix 20 mg x1 dose and upon return, K-Dur 20 mEq p.o. x1 dose with mannitol 6.25 g IV piggyback over 30 minutes x1 dose. The patient has insulin-dependent diabetes mellitus and received half-strength Levemir last evening in the anticipation of being n.p.o. for his cardiac cath this morning. His metformin was discontinued. PHYSICAL EXAMINATION VITAL SIGNS: At the time of evaluation, temperature was 97.7, respirations 18, pulse 57 and blood pressure 94/39 with a pulse ox of 97% room air. He was in a normal sinus rhythm. HEENT: Head is normocephalic and atraumatic. Eyes: No icterus. Ears: Clear. Throat: Noninjected. NECK: Supple. HEART: S1 and S2. LUNGS: Clear. ABDOMEN: Soft. EXTREMITIES: No edema. SKIN: Without rash. NEUROLOGICAL: Intact. PSYCHOLOGICAL: Alert. VASCULAR: Legs warm to touch. LABORATORY DATA: White count 7500, hemoglobin 15.6, hematocrit 45.6 and platelets 184,000. PT/INR 1.17 and PTT 27.6. Sodium 140, potassium 3.7, chloride 105, bicarb 28, BUN 12, creatinine 1.0, random blood sugar 102 with a calcium of 8.7. IMPRESSION: This is a 48-year-old male with unstable angina, admitted with accelerated hyperglycemia and hemoglobin A1c of 15.6 secondary to noncompliance with type 2 diabetes medical management as an outpatient prior to this admission with comorbidities of hyperlipidemia. PLAN: Continue Ecotrin placement. The patient received Plavix 75 mg x1 dose. He continues on Levemir 20 units subcutaneously at bedtime, Humulin R insulin coverage low-dose protocol a.c. meals and at bedtime. He will continue on Tylenol 650 p.o. every 6 hours p.r.n. pain temperature or headaches, Zofran 4 mg IV every 6 hours p.r.n. nausea and vomiting, nitroglycerin sublingual p.r.n. chest pain and based on the results of his cardiac cath, additional diagnostic workup and testing will be entertained. I have asked the nursing staff to make sure the patient is independent in his insulin regime and needs. Greater than 35 minutes was spent in his care, outlining of orders and discussion of his case with himself and nursing. All questions were answered. Trinh Walters MD MTDD
[2018-07-11] MEDS ORDERED: Potassium Chloride 20 mEq ER Tab PO ONE (17:00)
[2018-07-11] MEDS ORDERED: Mannitol 12.5 gm/50 ml Inj IVPB ONE (18:00)
[2018-07-12] MEDS: Insulin Reg-LOW-Coverage SC SCH ×3 (06:32→11:56)
[2018-07-12 07:33] LABS: BLOOD UREA NITROGEN 9 mg/dL (7-21); GFR NON-AFRICAN AMERICAN > 60
[2018-07-12 08:50] VITALS: BP 121/78; PULSE 62; TEMP 98.2; O2SAT 96
--- NOTE | 2018-07-12 23:48 | DS ---
HOSPITAL COURSE: This 48-year-old male was discharged from the [facility] after a lengthy bedside interview in the presence of nurse, Desirae Garnett, registered nurse on the morning of 07/12/2018. FINAL DIAGNOSES: Uncontrolled insulin-dependent diabetes mellitus. chest pain, resolved. Hyperlipidemia. PROCEDURES: Cardiac cath with unremarkable coronary artery findings. DISPOSITION: Discharged to home. DISCHARGE INSTRUCTIONS: Followup in my office, 07/17/2018 at 02:00 p.m. DISCHARGE MEDICATIONS: Prescriptions were given for Ecotrin 81 mg p.o. daily, Humulin R low-dose insulin protocol before meals and at bedtime, Levemir 20 units subcu at bedtime, Lipitor 20 mg p.o. at dinner time. Diabetic monitor test strips, lancets and syringes were also prescribed SUMMARY: This 48-year-old male was admitted to [facility] with complaints of weakness and dizziness in the setting of a blood glucose of 484. The patient was admitted, underwent diagnostic workup including hemoglobin A1c. Hemoglobin A1c was reportedly elevated at 15.6. Troponin was less than 0.01 x3. During the course of his hospital stay, the patient had classical substernal chest discomfort that was treated with sublingual nitroglycerin and Imdur. He completed echocardiogram that was reviewed and revealed normal cardiac chamber sizes with normal left ventricular systolic function with mild inferior septal hypokinesia with no valvular abnormalities noted. He also underwent a Lexiscan stress myocardial stress test this showed an abnormal SPECT myocardial perfusion study with reversible small size apical and basal inferior lateral defect, fact suggestive of ischemia. The patient subsequently underwent a cardiac cath with Dr. Taqueria Stephen from Cardiology. His findings were trivial coronary artery disease. No significant obstructive coronary artery disease and normal left ventricular systolic function. Once again risk factor management was reviewed with the patient including type 2 diabetes and hyperlipidemia. At the time of his discharge, his temperature was 98.2, respirations 18, pulse 62 and blood pressure 121/78, and pulse ox 96% room air. Blood sugar was 99 with a sodium of 142, K of 4.0, chloride 108, bicarb 26, BUN 9, creatinine 1.0 and calcium 9.0. White count 7500, hemoglobin 15.6, hematocrit 45.6, and platelets 184,000. Urinalysis showed no protein, but greater than 1000 mg decaliter of glucose. His EKG showed normal sinus rhythm with nonspecific ST-T wave changes and his chest x-ray was reviewed and showed well inflated and clear lungs, no infiltrate, no pleural effusion, no CHF. The patient was cleared for discharge to home. Medications were reviewed. He was advised to follow up in my office this Sunday at which time his medications will be adjusted and JAC inhibitor will be considered. His diabetic diet and insulin management was carefully reviewed in the presence of nurse, Desirae Garnett. All questions were answered. Hopefully, the patient will be compliant with these recommendations. Greater than 35 minutes was spent in his care today Trinh Walters MD MTDD
== END 2018-07-12 12:45 | disposition home or self-care (01) | DRG 287 ==
LOC: ED 18:09 → ERH 23:05 → 3RNO 07-07 00:09 → OBSVTOIN 07-07 12:31 → 2RSO 07-11 10:35 → 3RNO 07-11 16:13
PROVIDERS: ADMIT Internal Medicine; ATTEND Internal Medicine
PROC: 4A023N7 Measurement of Cardiac Sampling and Pressure, Left Heart, Percutaneous Approach (ICD-10-PCS; principal; 2018-07-11)
PROC: B2111ZZ Fluoroscopy of Multiple Coronary Arteries using Low Osmolar Contrast (ICD-10-PCS; 2018-07-11)
PROC: B2151ZZ Fluoroscopy of Left Heart using Low Osmolar Contrast (ICD-10-PCS; 2018-07-11)
DX: I20.0 Unstable angina (principal); E11.65 Type 2 diabetes mellitus with hyperglycemia; E78.5 Hyperlipidemia, unspecified; Z79.4 Long term (current) use of insulin; Z91.19 Patient's noncompliance with other medical treatment and regimen; Z91.11 Patient's noncompliance with dietary regimen; Z91.14 Patient's other noncompliance with medication regimen; Z82.49 Family history of ischemic heart disease and other diseases of the circulatory system; Z82.3 Family history of stroke; Z83.3 Family history of diabetes mellitus